=== PATIENT | male | born 1985 | race African-American/Black ===

== ENCOUNTER 2017-02-18 18:07 | Emergency (ER) | payer OTHER ==
[~2017-02-18] VITALS: Ht 165.1 cm; Wt 54.4 kg
[~2017-02-18 18:07] MED LIST: VICODIN 5-5001 EACH PO
[2017-02-18 18:38] LABS: ABSOLUTE NEUTROPHILS 6.3 thou/uL (1.4-8.2); BASOPHILS 0.5 % (0.0-2.0); EOSINOPHILS 0.8 % (0.0-3.0); HEMATOCRIT 39.4 % (42.0-52.0); HEMOGLOBIN 13.6 gm/dL (14.0-18.0); LYMPHOCYTES 15.1 % (24.0-44.0); MCH 32.5 pg (26.0-34.0); MCHC 34.5 g/dL (28.0-37.0); MCV 94.1 fL (80.0-100.0); MONOCYTES 6.3 % (1.0-8.0); PLATELET COUNT 294 thou/uL (150-400); POLYS 77.3 % (36.0-66.0); RBC 4.18 mil/uL (4.50-6.00); RDW 13.4 % (10.5-14.5); WBC 8.2 thou/uL (4.0-11.0)
[2017-02-18 18:39] LABS: MANUAL DIFF NO
[2017-02-18 18:49] LABS: CALCIUM 9.8 mg/dL (8.5-10.1); POTASSIUM 3.6 mmol/L (3.5-5.1)
[2017-02-18 19:37] VITALS: BP 139/42
== END 2017-02-18 19:55 ==
LOC: ER 18:07
PROVIDERS: Physician Assistant
DX: S90.32XA Contusion of left foot, initial encounter (principal); E86.0 Dehydration; F17.210 Nicotine dependence, cigarettes, uncomplicated; F12.10 Cannabis abuse, uncomplicated; V09.9XXA Pedestrian injured in unspecified transport accident, initial encounter; Y93.89 Activity, other specified; Y92.89 Other specified places as the place of occurrence of the external cause; Y99.8 Other external cause status

== ENCOUNTER 2019-05-13 12:03 | Inpatient (IN) | payer OTHER ==
[2019-05-13] VITALS (27 sets, daily range): BP systolic 84–164; BP diastolic 52–92
[~2019-05-13] VITALS: Ht 180.3 cm; Wt 55.8 kg
[2019-05-13 12:43] LABS: ABSOLUTE NEUTROPHILS 7.9 thou/uL (1.4-8.2); BASOPHILS 0.6 % (0.0-2.0); EOSINOPHILS 0.2 % (0.0-3.0); HEMATOCRIT 44.7 % (42.0-52.0); HEMOGLOBIN 15.5 gm/dL (14.0-18.0); LYMPHOCYTES 12.1 % (24.0-44.0); MCH 33.7 pg (26.0-34.0); MCHC 34.7 g/dL (28.0-37.0); MONOCYTES 6.3 % (1.0-8.0); PLATELET COUNT 296 thou/uL (150-400); POLYS 80.8 % (36.0-66.0); RBC 4.61 mil/uL (4.50-6.00); WBC 9.8 thou/uL (4.0-11.0)
[2019-05-13 12:52] LABS: ANION GAP 10 mmol/L (7-16); BUN 14 mg/dL (7-18); CHLORIDE 100 mmol/L (98-107); CO2 28 mmol/L (21-32); CREATININE 1.1 mg/dL (0.7-1.3); GLUCOSE 90 mg/dL (74-106); SODIUM 138 mmol/L (136-145)
[2019-05-13 13:02] LABS: ALBUMIN 4.8 g/dL (3.4-5.0); LIPASE 43 U/L (73-393); SGOT 46 U/L (15-37); SGPT 27 U/L (30-65); TOTAL BILIRUBIN 1.3 mg/dL (<0.1-1.0); TOTAL PROTEIN 9.1 g/dL (6.4-8.2); TROPONIN-I <0.06 ng/mL (<0.06)
[2019-05-13 13:06] LABS: URINE BLOOD NEGATIVE (Negative); URINE CLARITY CLOUDY; URINE COLOR YELLOW; URINE GLUCOSE-RANDOM* NEGATIVE (Negative); URINE KETONES NEGATIVE (Negative); URINE LEUKOCYTES-REFLEX NEGATIVE (Negative); URINE NITRITE-REFLEX NEGATIVE (Negative); URINE PROTEIN (DIPSTICK) 1+ (Negative); URINE SPECIFIC GRAVITY >= 1.030 (1.005-1.035)
[2019-05-13 13:09] LABS: ICTOTEST (BILI CONFIRMATORY) Negative (Negative); URINE BILIRUBIN NEGATIVE (Negative)
[2019-05-13 13:11] LABS: SALICYLATE < 2.8 mg/dL (2.8-20.0)
[2019-05-13 13:14] LABS: AMP/METHAMP POSITIVE (Negative); BARBITURATES Negative (Negative); BENZODIAZEPINES Negative (Negative); COCAINE Negative (Negative); METHADONE Negative (Negative); OPIATES Negative (Negative); PCP POSITIVE (Negative)
[2019-05-13 13:17] LABS: AMORPHOUS URATES Moderate /LPF (None Seen); BACTERIA-REFLEX 1-9 Few /HPF (None Seen); CASTS None Seen /LPF (None Seen); SQUAMOUS None Seen /LPF (0-3); URINE RBC None Seen /HPF (0-2); URINE WBC-REFLEX 0-5 Rare /HPF (0-5)
--- NOTE | 2019-05-13 13:45 | NUR ---
Pt back from CT at this time, in prone curled position on bed, grunting heavily. senior medical technologist reported to this PARA that pt became highly agitated during CT scan, stood on the CT table, and tried to wrestle with the optomechanical technician. CT scan aborted at that time, and pt broght back on bed as above, becoming highly agitated when instructed to lay supine. Pt became increasingly aggressive when instructed to lay supine. EDP [MD Brittany] made aware, 4-point locked restraints ordered at that time and subsequently placed by security officers. Pt placed on EtCO2 monitoring in addition to cardiac, BP, and SpO2 monitoring continued.
[2019-05-14] VITALS (26 sets, daily range): BP systolic 88–123; BP diastolic 47–79
[2019-05-14 05:12] LABS: HEMATOCRIT 39.1 % (42.0-52.0); MCH 33.3 pg (26.0-34.0); MCHC 33.8 g/dL (28.0-37.0); MCV 98.4 fL (80.0-100.0); RBC 3.98 mil/uL (4.50-6.00); RDW 13.2 % (10.5-14.5); WBC 6.7 thou/uL (4.0-11.0)
[2019-05-14 05:14] LABS: HEMOGLOBIN 13.2 gm/dL (14.0-18.0)
[2019-05-14 05:34] LABS: CALCIUM 8.2 mg/dL (8.5-10.1); CREATININE 0.9 mg/dL (0.7-1.3); POTASSIUM 4.1 mmol/L (3.5-5.1)
--- NOTE | 2019-05-14 07:24 | EKG ---
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 : 1985 Requested By: Alistair Soto Order Number: [id number] MD: Yayo Gilliam Measurements Intervals [place] Rate: 95 P: -26 TN: 153 QRS: 48 QRSD: 90 T: 58 QT: 368 QTc: 463 Interpretive Statements Sinus rhythm ST elev, probable normal early repol pattern Compared to ECG 03/23/2011 13:46:54 No significant change was found Electronically Signed On 05-14-2019 7:23:57 CDT by Yayo Gilliam [email or web address] ��������������������������������������������� <ELECTRONICALLY SIGNED> ���������������������������������������� By: Yayo Gilliam MD, [facility] ��������������������������������������������� 05/14/19 0723 [id number] Yayo Gilliam MD, [facility] /EPI
--- NOTE | 2019-05-14 07:52 | NUR ---
NO EVENTS OVERNIGHT. PT MOSTLY DROWSY; WAS FULLY ALERT FOR A FEW HOURS EARLIER LAST NIGHT. NO AGITATION NOTED. REMAINED FREE OF RESTRAINTS. PT HAD NOT VOIDED SINCE ED, BLADDER SCANNED AT [place] AND FOUND PT WAS RETAINING URINE. PT UNABLE TO VOID. OBTAINED ORDER FOR STRAIGHT CATH. WHEN SETTING UP TO STRAIGHT CATH, PT SAID HE WANTED TO TRY TO VOID ON HIS OWN AGAIN. PT VOIDED 550. BLADDER SCANNED PT AFTER AND SHOWED 0 CC IN BLADDER. PT NOT STRAIGHT CATHED. HALDOL HELD TWICE TO EXCESSIVE DROWSINESS AND SOFT BP. PT IS PROGRESSING. WILL CONTINUE TO MONITOR.
--- NOTE | 2019-05-14 12:09 | NUR ---
PT COOPERATIVE - STEADY ON FEET - VITAL SIGNS STABLE - ATE BREAKFAST - TALKED ON PHONE /C MOTHER - REPORT CALLED TO [facility] FOR TRANSFER TO BED 453
--- NOTE | 2019-05-14 16:55 | NUR ---
Pt transferred from ICU. A+O to self, place and time. On room air. With NS at 125cc/hr at L Upper arm, infusing well. Falls risk- falls bundle in place. Assisted in ADLs. Pt calm and cooperative at the moment. Vital signs stable. Able to ambulate, stand by assist. Complained of pain, due PRN pain meds given as prescribed. Pt not on any restraints, previously on restraints from ICU.
--- NOTE | 2019-05-14 17:20 | NUR ---
PT ADMITTED RELATED TO [facility], PCP/METH USE. CM REVIEWED CHART AND SPOKE WITH CARE TEAM. CM MET WIHT PT AT BEDSIDE THIS DAY. PT IS A&O X4. 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 CM READ PT ADDRESS LISTED ON FACE SHEET AND HE INDIATED THAT HE HAD LIVED THERE YEARS AGO. 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 PT INDICATED HE HAD NO PCP. CM ASKED TO WHERE PT PLANED TO GO ONCE MEDICALLY STABLE PT INDICATED HE WAS LOOKING INTO IT. CM INDICATED THAT PT COULD DC TO A [facility]OM[facility]ESS [facility] IF HE WASN'T ABLE TO FIND ANYHWERE TO GO ONCE MEDICALLY STABLE. [facility]: [facility]
[2019-05-14] MEDS ORDERED: RISPERDAL 1 MG T1 MG PO (17:29)
--- NOTE | 2019-05-15 03:10 | NUR ---
ASSUMED CARE AROUND 1900. AXOX4. XR CERVICAL SPINE AND L FT COMPLETED. NO S/S ACUTE DISTRESS NOTED OR REPORTED AT THIS TIME. WILL CONT TO MONITOR FOR ANY CHANGES IN CONDITION.
[2019-05-15 03:14] VITALS: BP 115/76
[2019-05-15 07:51] VITALS: BP 117/48
[2019-05-15 10:59] LABS: HEMATOCRIT 38.1 % (42.0-52.0); HEMOGLOBIN 12.9 gm/dL (14.0-18.0); MCH 33.4 pg (26.0-34.0); MCHC 33.9 g/dL (28.0-37.0); MCV 98.3 fL (80.0-100.0); RBC 3.88 mil/uL (4.50-6.00); RDW 13.3 % (10.5-14.5); WBC 5.8 thou/uL (4.0-11.0)
[2019-05-15 11:07] LABS: CALCIUM 8.7 mg/dL (8.5-10.1); CREATININE 0.8 mg/dL (0.7-1.3); POTASSIUM 3.7 mmol/L (3.5-5.1)
[2019-05-15 11:24] LABS: ALBUMIN 2.7 g/dL (3.4-5.0); TOTAL BILIRUBIN 0.3 mg/dL (<0.1-1.0)
--- NOTE | 2019-05-15 14:38 | NUR ---
ASSUMED CARE 0700. ALERT X4, FROM HOME. ABLE TO MAKE NEEDS KNOWN, LEFT FOOT LIMP WITH STAND BY, INDEPENDENT WITH MEALS. CONTINENT NO BM AT THIS TIME. PER HOSPITALIST PT LIKEY TO DC IF CPK LABS IMPROVE. CALL LIGHT IN REACH.
[2019-05-15 15:14] VITALS: BP 115/75
[2019-05-15 18:14] VITALS: BP 127/85
--- NOTE | 2019-05-16 02:24 | NUR ---
PATIENT AOX3 MAKES NEEDS KNOWN. PATIENT CALM AND COOPERATIVE WITH CARE AND MEDS. PATIENT CONSTANTLY ASKING FOR FOOD. PAIN CONTROLLED THIS SHIFT ON LEFT FOOT. PATIENT IN BED ASLEEP AT THIS TIME BREATHING REGULAR AND UNLABOURED.
[2019-05-16 04:12] VITALS: BP 106/61
[2019-05-16 08:00] VITALS: BP 121/72
--- NOTE | 2019-05-16 12:40 | NUR ---
ASSUMED CARE 0700. ALERT X4, PAIN MANAGED WITH MEDICATIONS, ABLE TO MAKE NEEDS KNOWN. CPK IMPROVING CONTINUES ON FLUIDS. VOICED HE WOULD LIKE TO GO HOME. CALL LIGHT IN REACH.
[2019-05-16 15:00] VITALS: BP 151/93
[2019-05-16 15:37] VITALS: BP 121/72
== END 2019-05-16 19:02 | disposition home or self-care (01) | DRG 917 ==
LOC: ER 12:03 → EROBS 14:39 → 4W 14:39 → ICU 16:38 → 4W 05-14 11:46
PROVIDERS: Emergency Medicine; ADMIT Internal Medicine
DX: T43.621A Poisoning by amphetamines, accidental (unintentional), initial encounter (principal); G92 Toxic encephalopathy; M62.82 Rhabdomyolysis; F15.129 Other stimulant abuse with intoxication, unspecified; M79.672 Pain in left foot; F16.129 Hallucinogen abuse with intoxication, unspecified; Y92.89 Other specified places as the place of occurrence of the external cause
CPT/HCPCS: 10047; 10078

== ENCOUNTER 2021-08-13 03:33 | Emergency (ER) | payer OTHER ==
[~2021-08-13] VITALS: Ht 182.9 cm; Wt 68.0 kg
[~2021-08-13 03:33] MED LIST changes: +RISPERDAL 1 MG T1 MG PO
[2021-08-13] MEDS ORDERED: OCUFLOX5 ML OPHTHALMIC (04:28)
[2021-08-13] MEDS ORDERED: ERYTHROMYCIN E3.5 G3 OPHTHALMIC (04:28)
[2021-08-13 07:52] VITALS: BP 144/100
== END 2021-08-13 07:52 | disposition home or self-care (01) ==
LOC: ER 03:33
DX: S05.01XA Injury of conjunctiva and corneal abrasion without foreign body, right eye, initial encounter (principal); F17.210 Nicotine dependence, cigarettes, uncomplicated; Z79.899 Other long term (current) drug therapy; X58.XXXA Exposure to other specified factors, initial encounter; Y93.89 Activity, other specified; Y92.89 Other specified places as the place of occurrence of the external cause; Y99.8 Other external cause status